=== PATIENT | male | born 2000 | race Caucasian/White ===

== ENCOUNTER 2022-10-28 16:10 | Emergency (ER) | payer OTHER, MEDICAID, SELFPAY ==
[2022-10-28 16:11] VITALS: BP 150/70; PULSE 70; RESP 18; TEMP 36.4; O2SAT 100; BMI 22.0
--- NOTE | 2022-10-28 16:30 | EKG12_ITS ---
Test Reason : CP Blood Pressure : / mmHG Vent. Rate : 069 BPM Atrial Rate : 069 BPM P-R Int : 124 ms QRS Dur : 078 ms QT Int : 356 ms P-R-T Axes : -09 084 067 degrees QTc Int : 381 ms Normal sinus rhythm Normal ECG Confirmed by COSME MEDEIROS MD ([id number]), supervising editor trailer CLARITZA DODGE ([id number]) on 11/02/2022 2:03:21 PM Referred By: JUAN MIGUEL Confirmed By:COSME MEDEIROS MD
--- NOTE | 2022-10-28 16:36 | ED.VIS.CHEST ---
HPI History of Present Illness Chief Complaint: Chest Pain Informant: patient Narrative Narrative: Presents by private vehicle evaluation chest pain left side while sitting in a car with his friend. He was a passenger felt tightness and pain that wraps to his left upper back. Denies dyspnea. Denies pain down his abdomen. Denies pain down his arms. No paresthesias. Unclear of any family history of sudden heart at a young age. No one he knows with heart attacks at a young age. 1 to 2 cigarettes/day. He denies hypertension IBS hyperlipidemia. Denies any PE risk factors. Denies any similar symptoms in the past. Recent Illness/Hospitalization: No CVD Risk Factors: Positive for Smoking; Negative for Hypertension, Diabetes, Hypercholesterolemia or Family History 1' </=55 PE Risk Factors: Negative for Recent Travel/Surgery, Recent Immobilization, Prior DVT or PE or OCP + Smoking + >/=35 PFSH PFSH Medical History no medical history Home Medications No Known/Unobtainable [No Known Home Medications] 07/11/16 [History Last Taken Unknown] Allergy/AdvReac Type Severity Reaction Status Date / Time No Known Allergies Allergy Verified 10/28/22 16:11 Social History Smoking Status: Never smoker [facility] ED Constitutional Constitutional ED: Denies chills, fever(s) or sweats Eyes Eyes: Denies change in vision ENT ENT ED: Denies dysphagia or sore throat Cardiovascular Cardiovascular: Reports chest pain; Denies leg edema, palpitations or racing heartbeat Respiratory/Chest Respiratory/Chest: Denies cough, dyspnea or dyspnea on exertion Gastrointestinal Gastrointestinal: Denies abdominal pain, diarrhea, nausea or vomiting Genitourinary Genitourinary ED: Denies dysuria, hematuria or urinary frequency Musculoskeletal Musculoskeletal: Reports back pain; Denies extremity pain or neck pain Integumentary Denies rash or wounds Neurologic Neurologic: Denies headache(s), paresthesias or weakness EXAM Physical Exam Const Vital Signs: 10/28/22 16:11 10/28/22 16:18 10/28/22 19:02 Temperature 97.5 F L Temperature Source Temporal Pulse Rate 70 67 Respiratory Rate 18 20 H Respiratory Effort Normal Non-Labored Blood Pressure 150/70 H 114/65 Blood Pressure Mean 96 81 Pulse Ox 100 Oxygen Delivery Method Room Air Room Air 10/28/22 19:48 Temperature Temperature Source Pulse Rate 63 Respiratory Rate 16 Respiratory Effort Blood Pressure 118/74 Blood Pressure Mean Pulse Ox 98 Oxygen Delivery Method Positive well nourished and well developed General Appearance ED: well developed and NAD HEENT Reports moist mucous membranes normocephalic and atraumatic Eyes PERRL, EOMs intact bilaterally and conjunctivae normal General Eye ED: Yes normal appearance of both eyes Neck no lymphadenopathy and supple General: Negative for tenderness Chest Wall Chest: Negative for tenderness Resp normal respiratory effort and normal air movement Effort and Inspection: symmetric chest movement; Negative for respiratory distress Cardio regular rate, regular rhythm and no murmurs Peripheral Pulses: pulses 2+ throughout GI normal to inspection, nondistended, normoactive bowel sounds and non-tender Palpation: Negative for guarding or rebound tenderness present Back/Spine no CVA tenderness and no thoracic nor lumbar tenderness Extremity normal to inspection General Extremety ED: Negative for edema or tenderness General Extremity: Negative for edema Neuro oriented x3 and no sensory deficits noted Sensorium / Orientation: awake and alert Skin no rashes or lesions noted and no wounds Heart Score History: Slightly/Non-Suspicious ECG: Normal Age: </= 45 years Risk Factors: 1 or 2 Risk Factors Troponin: </= Normal Limit Score: 1 MDM MDM MDM Narrative Medical decision making narrative: Interventions / MDM: Differential diagnosis: Atypical chest pain Diagnosis considered but do not suspect: Pulmonary embolism, aortic dissection however negative CT chest. ACS however normal EKG and cardiac enzymes. My EKG interpretation: Sinus rate of 69, no ST or T wave changes. Imaging independently reviewed and interpreted by myself: CT angiogram chest: No PE or dissection. External documents reviewed: N/A Test considered but not ordered:N/A ED course: Patient atypical pain left-sided pain with deep breaths. Pleuritic component. No PE risk factors. Slight Marfan stature. Tobacco history. Cardiac work-up initiated along with a D-dimer. Initial troponin negative dimer other points. Subsequent CTA chest obtained negative for dissection or PE. Delta troponin also obtained and returned negative. Patient reassured. Tobacco cessation. Outpatient follow-up with strict return precautions. All questions were answered. Re-evaluation: stable Disposition discussed with patient/family/significant other: Patient Case discussed with consulting clinician: N/A This note was generated with [employer] dictation software. It may contain incorrect words, spelling, and punctuation that were not noted in checking the note before signing. Lab Data Attestation: I reviewed the patient's lab results. Labs: Laboratory Results - last 24 hr 10/28/22 10/28/22 16:40 18:50 WBC 7.2 RBC 4.99 Hgb 15.2 Hct 45.2 MCV 90.6 MCH 30.5 MCHC 33.6 RDW Std Deviation 40.1 RDW Coeff of Hannah 12.0 Plt Count 219 MPV 10.6 Immature Gran % (Auto) 0.100 Neut % (Auto) 50.1 Lymph % (Auto) 38.3 [place] % (Auto) 7.8 Eos % (Auto) 3.1 Baso % (Auto) 0.6 Absolute Neuts (auto) 3.6 Absolute Lymphs (auto) 2.76 Nucleated RBC % 0 PT 12.9 INR 1.0 APTT 31.5 D-Dimer Quant (PE/DVT) 0.70 H* Sodium 138 Potassium 4.1 Chloride 105 Carbon Dioxide 30.0 Anion Gap 3 L BUN 12 Creatinine 0.98 Estim Creat Clear Calc 122.21 Est GFR (MDRD) Af Amer 122 Est GFR (MDRD) Non-Af 101 BUN/Creatinine Ratio 12.3 Glucose 88 Calcium 9.0 Troponin I High Sens < 3 L < 3 L Radiography Diagnostic Testing: Clinical Impression(s) from Imaging Studies Chest CTA 10/28/22 17:17 IMPRESSION: Negative CTA chest. Electronically Signed: Nate Stone MD at 18:15 EDT Reading Location ID and State: [address] [place] [address] Tel , Service support , Discharge Plan Triage Chief Complaint: Chest Pain ED Provider: Joe Vanegas Dx/Rx/DC Orders Instructions: ED Chest Pain, Noncardiac, ED Pleurisy Prescriptions: No Action No Known Home Medications Primary Care Provider: Care Physician,No Primary Referrals: Trudi Lee [Non-Staff] - 1 Week if not improving Care Physician,No Primary [Primary Care Provider] - Activity Restrictions/Additional Instructions: Cardiac work-up negative. CT angiogram also negative for PE or dissection. Follow-up as an outpatient. Return if worsening symptoms. Use Tylenol or Motrin as needed Disposition Disposition: Home, Self Care Discharge Date/Time: 10/28/22 19:49
[2022-10-28 16:54] LABS: Absolute Lymphocyte Count 2.76 X10^3/uL (0.83-4.51); Absolute Neutrophil Count 3.6 X10^3/uL (2.0-7.7); Basophil# 0.04 X10^3/uL; Basophil% 0.6 % (0-1); Eosinophil# 0.22 X10^3/uL; Eosinophils% 3.1 % (0-5); Hematocrit 45.2 % (40-54); Hemoglobin 15.2 g/dL (13.0-16.5); Lymphocyte # 2.76 X10^3/ul (0.83-4.51); Lymphocyte % 38.3 % (19-41); Mean Corp Hgb Conc 33.6 g/dL (32-36); Mean Corpuscular Hgb 30.5 pg (27.0-32.0); Mean Corpuscular Volume 90.6 fL (80-94); Mean Platelet Vol. 10.6 fl (6.2-12.0); Monocyte# 0.56 X10^3/uL; Monocyte% 7.8 % (0-10); NRBC Flagged by Analyzer 0 % (0-5); Neutrophil # 3.62 X10^3/uL (2.7-7.7); Neutrophil % 50.1 % (47-70); Platelet Count 219 K/mm3 (150-450); RBC Distribution Width SD 40.1 fl (35.1-43.9); Red Blood Count 4.99 M/mm3 (4.6-6.2); White Blood Count 7.2 K/mm3 (4.4-11.0)
[2022-10-28 16:59] LABS: Prothrombin Time (Protime)PT. 12.9 SECONDS (11.7-14.9)
[2022-10-28 17:00] LABS: Partial Thromboplast Time 31.5 Seconds (24.1-36.2)
[2022-10-28 17:16] LABS: Anion Gap 3 (5-15); BUN 12 mg/dL (7-18); BUN/Creat Ratio 12.3 RATIO (10-20); Chloride 105 mmol/L (98-107); Creatinine, Serum 0.98 mg/dL (0.70-1.30); EST Glomerular Filtration Rate 101 mL/min (>60); Est Glom Filt Rate - Afr Amer 122 mL/min (>60); Estimated Creatinine Clearance 122.21 ml/min; Glucose 88 mg/dL (74-106); Potassium 4.1 mmol/L (3.5-5.1); Sodium Level 138 mmol/L (136-145); Troponin-I HS (w/2H Reflex) < 3 pg/mL (3.0-78.0)
--- NOTE | 2022-10-28 17:17 | CT_ITS ---
EXAM: CT ANGIOGRAPHY CHEST WITHOUT AND WITH INTRAVENOUS CONTRAST CLINICAL INDICATION: chest pain TECHNIQUE: Helically acquired angiography images were obtained of the chest without and with intravenous contrast. This CT exam was performed using one or more of the following dose reduction techniques: automated exposure control, adjustment of the mA and/or kV according to patient size, and/or use of iterative reconstruction technique. MIP reconstructed images were created and reviewed. CONTRAST: IV 100mL [id number] COMPARISON: No relevant prior studies available. FINDINGS: PULMONARY ARTERIES: Unremarkable. Normal in caliber. No evidence of pulmonary embolism. AORTA: Unremarkable. Normal in caliber. No evidence of dissection. GREAT VESSELS OF AORTIC ARCH: Unremarkable. Normal in caliber. No evidence of dissection. LUNGS AND PLEURAL SPACES: Unremarkable. No mass. No consolidation or edema. No pleural effusion or thickening. No pneumothorax. HEART: Unremarkable. Heart size is normal. No pericardial effusion. No significant coronary artery calcifications. MEDIASTINUM: Unremarkable. No mediastinal or hilar adenopathy. Esophagus is unremarkable. No hiatal hernia. THYROID: Unremarkable. No thyroid lesions. BONES/JOINTS: Unremarkable. No suspicious lytic or blastic abnormality. CT/CTA Chest W/WO Contrast IMPRESSION: Negative CTA chest. Electronically Signed: Nate Stone MD at 18:15 EDT ,
--- NOTE | 2022-10-28 17:19 | CM.ED ---
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 Patient lying on hospital bed and agreeable to speak with SW. SW inquired about patient's insurance and current PCP. Patient verified insurance and reports no current PCP. SW provided patient with a list of local PCPs in network with patient's insurance and accepting new patients. Patient was receptive towards list and voiced no other needs. SW remains available if needs arise. Juju Chappell MSW, MARIO
[2022-10-28 18:47] LABS: Reflex Troponin-HS? (from REC) Y
[2022-10-28 19:02] VITALS: BP 114/65; PULSE 67; RESP 20
[2022-10-28 19:24] LABS: Troponin-I HS < 3 pg/mL (3.0-78.0)
[2022-10-28 19:48] VITALS: BP 118/74; PULSE 63; RESP 16; O2SAT 98
== END 2022-10-28 19:49 | disposition home or self-care (01) ==
PROVIDERS: Emergency Provider Emergency Medicine; Visit Provider Emergency Medicine
DX: R07.89 Other chest pain (principal); F17.210 Nicotine dependence, cigarettes, uncomplicated
CPT/HCPCS: 71275; 80048; 84484; 85025; 85379; 85610; 85730; 93005; 99284; Q9967; A4216